=== PATIENT | male | born 1970 | race Caucasian/White ===

== ENCOUNTER 2017-09-03 11:06 | Emergency (ER) | payer OTHER ==
[~2017-09-03] VITALS: Ht 195.6 cm; Wt 128.5 kg
[2017-09-03 11:08] VITALS: TEMP 36.5; Ht 195.6 cm; Wt 128.5 kg
[2017-09-03] MEDS ORDERED: KETOROLAC TROMETHAMINE 60 MG/2 ML VIAL IM STA (11:26)
[2017-09-03] MEDS ORDERED: RITO100T PO (11:35)
[2017-09-03] MEDS ORDERED: ALLOPOW4 PO (11:35)
[2017-09-03] MEDS ORDERED: DARU75TA PO (11:35)
[2017-09-03] MEDS ORDERED: TRVHP PO (11:35)
[2017-09-03] MEDS ORDERED: DARU1TAB5 PO (11:40)
[2017-09-03] MEDS ORDERED: ALLO300T2 PO (11:40)
--- NOTE | 2017-09-03 12:23 | DIAGNOSTIC IMAGING REPORT ---
PA CHEST WITH RIGHT-SIDED RIB SERIES CLINICAL HISTORY: Right-sided chest wall injury. FINDINGS: A PA chest radiograph with 4 additional views from a right-sided rib series is obtained. No prior studies are available for comparison at the time of dictation. The cardiomediastinal silhouette is unremarkable. The lungs and pleural spaces are clear. No pneumothorax is seen. There is a chronic appearing right posterior 11th rib fracture. Acute right anterior 8th , 9th, and 10th rib fractures are suspected on the rib series. The bony thorax is grossly intact. IMPRESSION: 1. The lungs are clear. 2. Suspect acute right anterior 8th , 9th, and 10th rib fractures on the rib series. Correlate for point tenderness. Electronically signed by: Elliot Gongora M.D. 09/03/2017 12:22 PM Dictated Date/Time: 09/03/2017 12:18 PM
--- NOTE | 2017-09-03 12:52 | EMERGENCY ROOM VISIT NOTE ---
ED Visit Note First contact with patient: 11:21 CHIEF COMPLAINT: Right rib injury HISTORY OF PRESENT ILLNESS: This 47-year-old male presents the ER with chief complaint of right rib injury. The patient states that he was riding a horse around 10:30 AM and the horse spooked and he came off the horse landing on his right ribs. The patient also admits to minor right wrist pain but states he is able to move his wrist without difficulty and is not concerned about the wrist but is concerned about the right ribs. The patient states it hurts to move or take in a deep breath. He took 2 extra strength Tylenol without any relief. The patient denies any shortness of breath. The patient is not on any blood thinners. The patient drove himself to the ER. REVIEW OF SYSTEMS: 6 system review was performed and was negative unless stated otherwise in history of present illness. PMH: The patient is healthy; appendectomy SOCIAL HISTORY: Patient lives alone. The patient admits to tobacco use and occasional alcohol use. PHYSICAL EXAM: Vital Signs: Were reviewed Reviewed Nurse's notes. GENERAL: 47- year-old male appears uncomfortable secondary to rib pain. MENTAL Status: Alert and oriented 3. LUNGS: Clear to auscultation and breath sounds equal, no wheezes, rales, or rhonchi. HEART: Heart sounds are regular without murmurs , ectopy, gallop, or rub. RIBS: The patient has a small abrasion just posterior to the mid axillary line on the right side where the patient is severely tender to palpation. Remainder of chest wall is nontender. RIGHT WRIST: No gross bony deformity noted. Nontender to palpation throughout. Full range of motion. EMERGENCY DEPARTMENT COURSE: The patient was evaluated. The patient was given Toradol 60 mg IM. X-rays of the right rib to include PA chest was ordered and interpreted by the radiologist and myself. DIAGNOSTICS:PA CHEST WITH RIGHT-SIDED RIB SERIES CLINICAL HISTORY: Right-sided chest wall injury. FINDINGS: A PA chest radiograph with 4 additional views from a right-sided rib series is obtained. No prior studies are available for comparison at the time of dictation. The cardiomediastinal silhouette is unremarkable. The lungs and pleural spaces are clear. No pneumothorax is seen. There is a chronic appearing right posterior 11th rib fracture. Acute right anterior 8th , 9th, and 10th rib fractures are suspected on the rib series. The bony thorax is grossly intact. IMPRESSION: 1. The lungs are clear. 2. Suspect acute right anterior 8th , 9th, and 10th rib fractures on the rib series. Correlate for point tenderness. Electronically signed by: Elliot Gongora M.D. 09/03/2017 12:22 PM Dictated Date/Time: 09/03/2017 12:18 PM The patient was informed of the findings. The patient was given an incentive spirometer. The patient was discharged home in stable condition. DIAGNOSIS: Multiple right rib fractures TREATMENT and DISCHARGE INSTRUCTIONS: Ibuprofen 600 mg every 6 hours with food for pain. Take Colton as needed for more severe pain. Do not drive while taking the Colton. Follow-up with [facility] in 3 days for more pain medication since you are here from out of town. Use incentive spirometer 10 inhalations every 2-4 hours for at least the next 7-10 days. If symptoms should worsen, return to ER. Do not ride a horse for the next 4-6 weeks until symptoms have improved. Current/Historical Medications Scheduled Allopurinol (Zyloprim), 1.5 TAB PO QAM Darunavir Ethanolate (Prezista), 1 TAB PO QAM Emtricitabine/Temofovir (Truvada 200/300MG), 1 TAB PO QAM Ritonavir (Norvir), 1 TAB PO QAM Allergies Coded Allergies: No Known Allergies (Unverified , 09/03/17) Vital Signs Date Time Temp Pulse Resp B/P (MAP) Pulse Ox O2 Delivery O2 Flow Rate FiO2 09/03/17 11:08 36.5 100 18 97 Room Air Medications Administered Medications (Trade) Dose Ordered Sig/Tony Route Start Time Stop Time Status Last Admin Dose Admin Ketorolac Tromethamine (Toradol Inj) 60 mg NOW STAT IM 09/03/17 11:26 09/03/17 11:28 DC 09/03/17 11:35 60 MG Departure Information Referrals No Doctor, Assigned (PCP) Patient Instructions [facility]
[2017-09-03] MEDS ORDERED: HYDR-5688 PO (12:54)
[2017-09-03 13:11] VITALS: BP 156/86; PULSE 79; O2SAT 96
== END 2017-09-03 13:12 | disposition home or self-care (01) ==
LOC: C.EDB 11:07 → C.EDD 13:12
DX: S22.41XA Multiple fractures of ribs, right side, initial encounter for closed fracture (principal); V80.010A Animal-rider injured by fall from or being thrown from horse in noncollision accident, initial encounter; Y92.89 Other specified places as the place of occurrence of the external cause; Z72.0 Tobacco use